=== PATIENT | female | born 1995 | race Caucasian/White ===

== ENCOUNTER 2017-11-11 00:03 | Emergency (ER) | payer BC, OTHER ==
[~2017-11-11] VITALS: Ht 167.6 cm; Wt 63.5 kg
[2017-11-11] MEDS ORDERED: DOXYCYCLINE 10100 M1 PO (00:09)
[2017-11-11] MEDS ORDERED: NORFLEX100 MG PO (00:16)
[2017-11-11] MEDS ORDERED: IBUPROFEN 600600 M1 PO (00:16)
== END 2017-11-11 00:42 | disposition home or self-care (01) ==
LOC: ER 00:03
DX: S00.03XA Contusion of scalp, initial encounter (principal); V89.2XXA Person injured in unspecified motor-vehicle accident, traffic, initial encounter; Y93.I9 Activity, other involving external motion; Y92.89 Other specified places as the place of occurrence of the external cause; Y99.8 Other external cause status